=== PATIENT | female | born 1940 | race Caucasian/White ===

== ENCOUNTER 2017-02-09 10:21 | Emergency (ER) | payer OTHER ==
[~2017-02-09] VITALS: Ht 170.2 cm; Wt 81.0 kg
[~2017-02-09 10:21] MED LIST: 1-ME1LIQ PO; ATOR40TA49 PO; CARD4TAB2 PO; CORE25TA PO; GABA300 PO; LEVEMIR SQ; LEVO.025 PO; LISI-366 PO; MAGN400 PO; MAGN500T4 PO; METF-324 PO; METHO500 PO; PROT40TA PO; ST JTAB PO; SUCR1TAB PO; ULTR50TA PO
[2017-02-09 10:23] VITALS: BP 141/63; PULSE 60; RESP 20; TEMP 97.7; O2SAT 98
[2017-02-09] MEDS ORDERED: CARA1TAB6 PO (14:05)
[2017-02-09] MEDS ORDERED: CORE25TA PO (14:05)
[2017-02-09] MEDS ORDERED: PANT40TA3 PO (14:05)
[2017-02-09] MEDS ORDERED: CARD4TAB2 PO (14:05)
[2017-02-09] MEDS ORDERED: MAGN500T2 PO (14:05)
[2017-02-09] MEDS ORDERED: AMLO5TAB2 PO (14:05)
[2017-02-09] MEDS ORDERED: METF1000 PO (14:05)
[2017-02-09] MEDS ORDERED: ASPI1TAB91 PO (14:05)
[2017-02-09] MEDS ORDERED: LISI40TA PO (14:05)
[2017-02-09] MEDS ORDERED: ATOR40TA16 PO (14:05)
[2017-02-09] MEDS ORDERED: LEVO25TA4 PO (14:05)
--- NOTE | 2017-02-09 14:14 | PD ---
HPI Chief Complaint: ENT Complaint Time Seen by Provider: 13:40 Travel History International Travel<30 days: No Contact w/Intl Traveler<30days: No Traveled to known affect area: No History of Present Illness HPI 76yo F with PMH of mesothelioma s/p chemo and follows with Dr. Becker, CAD s/p cardiac stent, GERD, HTN presents to the ED with 2 complaints. Pt has been having cold like symptoms such as rhinorrhea and nasal congestion and said that after she sneezed today, she felt her hearing was decreased bilaterally. Denies any ear pain or trauma. Pt also with left sided flank pain since yesterday. Pain is throbbing, constant, and nonradiating. Said temperature of 100F at home. Denies any chest pain, sob, n/v, abdominal pain, urinary complaints, focal weakness or numbness. PFSH Past Medical History Arthritis: Yes Asthma: No Autoimmune Disease: No Blood Disorders: No Heart Rhythm Problems: Yes Cancer: Yes (LYMPHOMA, BOWEL) Cardiac Catheterization: Yes Cardiovascular Problems: Yes (3-4 STENTS) High Cholesterol: Yes Chemotherapy: Yes (2015) Chest Pain: No Congestive Heart Failure: Yes COPD: No Diabetes: Yes (METFORMIN 02/09/17 0800) Diminished Hearing: Yes Diverticulitis: Yes Endocrine: Yes Gastrointestinal Disorders: Yes GERD: Yes Glaucoma: No Genitourinary: No Hepatitis: No Hiatal Hernia: No Hypertension: Yes Immune Disorder: No Kidney Stones: No Musculoskeletal: Yes Neurologic: No Psychiatric: No Reproductive: No Respiratory: No Integumentary: Yes (HX MRSA) Myocardial Infarction: Yes Radiation Therapy: No Renal Failure: No Shingles: Yes Sickle Cell Disease: No Sleep Apnea: No Thyroid Disease: Yes (HYPO) Triglycerides - High: Yes Ulcer: No Menopausal: Yes Past Surgical History Abdominal Surgery: Yes (BOWEL RESECTION / KATIA / APPY) AICD: No Appendectomy: Yes Cardiac Surgery: Yes (STENTS) Cholecystectomy: Yes Coronary Stent: Yes Ear Surgery: No Endocrine Surgery: No Eye Surgery: No Genitourinary Surgery: No Gynecologic Surgery: Yes (HYSTERECTOMY) Hysterectomy: Yes Joint Replacement: Yes (R KNEE) Oral Surgery: No Thoracic Surgery: No Other Surgery: Yes (ABD ) Social History Alcohol Use: No Tobacco Use: No (QUIT 2002) Substance Use: No Allergies-Medications (Allergen,Severity, Reaction): Coded Allergies: Codeine (Verified Allergy, Severe, Hives, 05/08/16) Penicillin (Verified Allergy, Severe, Anaphylaxis, 05/08/16) REACTION NOT GIVEN Sulfa (Verified Allergy, Severe, Hives, 05/08/16) Reported Meds & Prescriptions Reported Meds & Active Scripts Active Nitrofurantoin Monohydrate Macrocrystals (Nitrofurantoin Monoh/Nitrofur Macro) 100 Mg Cap 100 Mg PO BID 7 Days Reported Amlodipine (Amlodipine Besylate) 5 Mg Tab 5 Mg PO DAILY Atorvastatin (Atorvastatin Calcium) 40 Mg Tab 40 Mg PO HS Cardura (Doxazosin Mesylate) 4 Mg Tab 4 Mg PO HS Coreg (Carvedilol) 25 Mg Tab 25 Mg PO BID Lisinopril 40 Mg Tab 40 Mg PO DAILY Metformin (Metformin HCl) 1,000 Mg Tab 1,000 Mg PO BID With meals Carafate (Sucralfate) 1 Gm Tab 1 Gm PO BID On empty stomach Levothyroxine (Levothyroxine Sodium) 25 Mcg Tab 25 Mcg PO DAILY Aspirin Adult Low Strength (Aspirin) 81 Mg Tabdr 81 Mg PO DAILY Pantoprazole (Pantoprazole Sodium) 40 Mg Tab 40 Mg PO DAILY Magnesium Oxide 500 Mg Tab 500 Mg PO DAILY Review of Systems Except as stated in HPI: all other systems reviewed are Neg Physical Exam Narrative GENERAL: 76yo F not in distress. SKIN: Focused skin assessment warm/dry. HEAD: Atraumatic. Normocephalic. EYES: Pupils equal and round at 3mm bilaterally. EOMI. No scleral icterus. No injection or drainage. ENT: Bilateral cerumen impaction. Throat: Clear. NECK: Trachea midline. No JVD. CARDIOVASCULAR: Regular rate and rhythm. No murmur appreciated. RESPIRATORY: No accessory muscle use. Clear to auscultation. Breath sounds equal bilaterally. GASTROINTESTINAL: Abdomen soft, non-tender, nondistended. No rebound tenderness or guarding. BACK: +TTP left flank. MUSCULOSKELETAL: No obvious deformities. No clubbing. No cyanosis. No edema. NEUROLOGICAL: Awake and alert. No obvious cranial nerve deficits. Motor grossly within normal limits. Normal speech. PSYCHIATRIC: Appropriate mood and affect; insight and judgment normal. Data Data Last Documented VS Vital Signs Date Time Temp Pulse Resp B/P Pulse Ox O2 Delivery O2 Flow Rate FiO2 02/09/17 17:41 95 Room Air 02/09/17 14:48 97.6 48 16 181/84 Orders Basic Metabolic Panel (Bmp) (02/09/17 13:55) Complete Blood Count With Diff (02/09/17 13:55) Urinalysis - C+S If Indicated (02/09/17 13:55) Iv Access Insert/Monitor (02/09/17 13:55) Ecg Monitoring (02/09/17 13:55) Oximetry (02/09/17 13:55) Sodium Chloride 0.9% Flush (Ns Flush) (02/09/17 14:00) Urine Culture (02/09/17 15:56) Nitrofurantoin Monohyd Macrocr (Macrobid (02/09/17 17:00) Heparin Central Flush (Heparin Central F (02/09/17 17:15) Labs Laboratory Tests Test 02/09/17 02/09/17 15:31 15:56 White Blood Count 5.4 TH/MM3 Red Blood Count 3.73 MIL/MM3 Hemoglobin 11.8 GM/DL Hematocrit 35.3 % Mean Corpuscular Volume 94.5 FL Mean Corpuscular Hemoglobin 31.6 PG Mean Corpuscular Hemoglobin 33.4 % Concent Red Cell Distribution Width 12.7 % Platelet Count 255 TH/MM3 Mean Platelet Volume 8.3 FL Neutrophils (%) (Auto) 59.2 % Lymphocytes (%) (Auto) 25.4 % Monocytes (%) (Auto) 10.3 % Eosinophils (%) (Auto) 4.5 % Basophils (%) (Auto) 0.6 % Neutrophils # (Auto) 3.2 TH/MM3 Lymphocytes # (Auto) 1.4 TH/MM3 Monocytes # (Auto) 0.5 TH/MM3 Eosinophils # (Auto) 0.2 TH/MM3 Basophils # (Auto) 0.0 TH/MM3 CBC Comment DIFF FINAL Differential Comment Sodium Level 141 MEQ/L Potassium Level 4.1 MEQ/L Chloride Level 106 MEQ/L Carbon Dioxide Level 25.3 MEQ/L Anion Gap 10 MEQ/L Blood Urea Nitrogen 27 MG/DL Creatinine 1.22 MG/DL Estimat Glomerular Filtration 43 ML/MIN Rate Random Glucose 140 MG/DL Calcium Level 9.2 MG/DL Urine Color YELLOW Urine Turbidity HAZY Urine pH 6.0 Urine Specific [place] 1.009 Urine Protein TRACE mg/dL Urine Glucose (UA) NEG mg/dL Urine Ketones NEG mg/dL Urine Occult Blood NEG Urine Nitrite NEG Urine Bilirubin NEG Urine Urobilinogen LESS THAN 2.0 MG/DL Urine Leukocyte Esterase LARGE Urine RBC 3 /hpf Urine WBC 105 /hpf Urine Transitional Epithelial 1 /hpf Cells Urine Amorphous Sediment RARE Urine Hyaline Casts 2 /lpf Urine Mucus FEW /lpf Microscopic Urinalysis Comment CULTURE INDICATED MDM Medical Decision Making Medical Screen Exam Complete: Yes Emergency Medical Condition: Yes Interpretation(s) Laboratory Tests Test 02/09/17 02/09/17 15:31 15:56 White Blood Count 5.4 TH/MM3 (4.0-11.0) Red Blood Count 3.73 MIL/MM3 (4.00-5.30) Hemoglobin 11.8 GM/DL (11.6-15.3) Hematocrit 35.3 % (35.0-46.0) Mean Corpuscular Volume 94.5 FL (80.0-100.0) Mean Corpuscular Hemoglobin 31.6 PG (27.0-34.0) Mean Corpuscular Hemoglobin 33.4 % Concent (32.0-36.0) Red Cell Distribution Width 12.7 % (11.6-17.2) Platelet Count 255 TH/MM3 (150-450) Mean Platelet Volume 8.3 FL (7.0-11.0) Neutrophils (%) (Auto) 59.2 % (16.0-70.0) Lymphocytes (%) (Auto) 25.4 % (9.0-44.0) Monocytes (%) (Auto) 10.3 % (0.0-8.0) Eosinophils (%) (Auto) 4.5 % (0.0-4.0) Basophils (%) (Auto) 0.6 % (0.0-2.0) Neutrophils # (Auto) 3.2 TH/MM3 (1.8-7.7) Lymphocytes # (Auto) 1.4 TH/MM3 (1.0-4.8) Monocytes # (Auto) 0.5 TH/MM3 (0-0.9) Eosinophils # (Auto) 0.2 TH/MM3 (0-0.4) Basophils # (Auto) 0.0 TH/MM3 (0-0.2) CBC Comment DIFF FINAL Differential Comment Sodium Level 141 MEQ/L (136-145) Potassium Level 4.1 MEQ/L (3.5-5.1) Chloride Level 106 MEQ/L (98-107) Carbon Dioxide Level 25.3 MEQ/L (21.0-32.0) Anion Gap 10 MEQ/L (5-15) Blood Urea Nitrogen 27 MG/DL (7-18) Creatinine 1.22 MG/DL (0.50-1.00) Estimat Glomerular Filtration 43 ML/MIN (>89) Rate Random Glucose 140 MG/DL (74-106) Calcium Level 9.2 MG/DL (8.5-10.1) Urine Color YELLOW (YELLW/STRAW) Urine Turbidity HAZY (CLEAR) Urine pH 6.0 (5.0-8.5) Urine Specific [place] 1.009 (1.002-1.035) Urine Protein TRACE mg/dL (NEG-TRACE) Urine Glucose (UA) NEG mg/dL (NEG) Urine Ketones NEG mg/dL (NEG) Urine Occult Blood NEG (NEG) Urine Nitrite NEG (NEG) Urine Bilirubin NEG (NEG) Urine Urobilinogen LESS THAN 2.0 MG/DL (LESS THAN 2.0) Urine Leukocyte Esterase LARGE (NEG) Urine RBC 3 /hpf (0-3) Urine WBC 105 /hpf (0-5) Urine Transitional Epithelial 1 /hpf (NONE) Cells Urine Amorphous Sediment RARE Urine Hyaline Casts 2 /lpf (RARE) Urine Mucus FEW /lpf (OCC) Microscopic Urinalysis Comment CULTURE INDICATED Differential Diagnosis Pyelonephritis vs. nephrolithiasis vs. UTI vs. cerumen impaction Narrative Course 76yo F with mesothelioma s/p chemo here with 2 complaints. Pt is complaining of left flank pain since yesterday. Labs reviewed, no leukocytosis. Creatinine 1.22, which is at baseline. UA showed large leukocyte. WBC 105. Pt reevaluated at bedside after flushing her ears with hydrogen peroxide and warm water. States now she can hear. TM wnl bilaterally. Pt also has no abdominal pain and left back pain has resolved. Pt is well appearing and wants to go home. Denies any nausea or vomiting. Pt has no abdominal pain and wants to go home, CT cancelled. She is allergic to penicillin and sulfa, will give PO antibiotics. First dose of nitrofurantoin given here. Diagnosis Primary Impression: UTI (urinary tract infection) Qualified Code: N39.0 - Urinary tract infection without hematuria, site unspecified Patient Instructions: General Instructions Departure Forms: Tests/Procedures Additional Instructions: Please follow up with your PMD in 1-2 days. Return to the ED if symptoms worsen. Med/Other Pt SpecificInfo: Prescription(s) given Scripts Nitrofurantoin Monohydrate Macrocrystals 100 Mg Qsp684 Mg PO BID 7 Days Ref 0 Prov:Parisa Davalos DO 02/09/17 Disposition: 01 DISCHARGE HOME Condition: Stable Parisa Davalos DO Feb 09, 2017 14:14
[2017-02-09 14:48] VITALS: BP 181/84; PULSE 48; RESP 16; TEMP 97.6; O2SAT 98
[2017-02-09] MEDS: SODIUM CHLORIDE 0.9% FLUSH 10 ML FLUSH IV FLUSH PRN ×2 (15:08→17:05)
[2017-02-09 16:07] LABS: AUTOMATED NEUTROPHIL # 3.2 TH/MM3 (1.8-7.7); BASOPHIL % 0.6 % (0.0-2.0); EOSINOPHIL # 0.2 TH/MM3 (0-0.4); EOSINOPHIL % 4.5 % (0.0-4.0); HEMATOCRIT 35.3 % (35.0-46.0); HEMO FLAGS DIFF FINAL; LYMPH % 25.4 % (9.0-44.0); LYMPHOCYTE # 1.4 TH/MM3 (1.0-4.8); MEAN CELL VOLUME 94.5 FL (80.0-100.0); MEAN CORPUSCULAR HEMOGLOBIN 31.6 PG (27.0-34.0); MEAN CORPUSCULAR HGB CONC 33.4 % (32.0-36.0); MONO % 10.3 % (0.0-8.0); NEUT % 59.2 % (16.0-70.0); PLATELET COUNT 255 TH/MM3 (150-450); RED BLOOD COUNT 3.73 MIL/MM3 (4.00-5.30); RED CELL DISTRIBUTION WIDTH 12.7 % (11.6-17.2); WHITE BLOOD COUNT 5.4 TH/MM3 (4.0-11.0)
[2017-02-09 16:23] LABS: BLOOD, URINE NEG (NEG); COMMENT (UR) CULTURE INDICATED; CULTURE IF INDICATED CULTURE INDICATED; GLUCOSE,URINE NEG (NEG); HYALINE CAST, URINE 2 /lpf (RARE); KETONE, URINE NEG (NEG); MUCUS URINE FEW /lpf (OCC); NITRITE,URINE NEG (NEG); TRANSITIONAL EPI CELLS, URINE 1 /hpf; URINE COLOR YELLOW (YELLW/STRAW)
[2017-02-09 16:30] LABS: BICARBONATE 25.3 MEQ/L (21.0-32.0); POTASSIUM 4.1 MEQ/L (3.5-5.1)
[2017-02-09] MEDS ORDERED: NITROFURANTOIN MONOHYD MACROCR 100 MG CAP PO ONE (17:00)
[2017-02-09] MEDS ORDERED: NITR100C4 PO (17:09)
[2017-02-09 17:41] VITALS: O2SAT 95
== END 2017-02-09 17:42 | disposition home or self-care (01) ==
LOC: NEPD 10:21
DX: N39.0 Urinary tract infection, site not specified (principal); A49.02 Methicillin resistant Staphylococcus aureus infection, unspecified site; J34.89 Other specified disorders of nose and nasal sinuses; R09.81 Nasal congestion; C45.9 Mesothelioma, unspecified; K21.9 Gastro-esophageal reflux disease without esophagitis; I10 Essential (primary) hypertension; E11.9 Type 2 diabetes mellitus without complications; I50.9 Heart failure, unspecified
CPT/HCPCS: 80048; 81001; 85025; 86403; 87086; 87186; 99283; J1642

== ENCOUNTER 2017-07-09 16:47 | Inpatient (IN) | payer OTHER, MEDICARE ==
[~2017-07-09] VITALS: Ht 172.7 cm; Wt 84.6 kg
[~2017-07-09 16:47] MED LIST changes: -1-ME1LIQ PO; +AMLO5TAB2 PO; +ASPI81TA16 PO; +ATOR40TA16 PO; -ATOR40TA49 PO; +CARA1TAB6 PO; -GABA300 PO; -LEVEMIR SQ; -LEVO.025 PO; +LEVO25TA4 PO; -LISI-366 PO; +LISI40TA PO; -MAGN400 PO; +MAGN500T2 PO; -MAGN500T4 PO; -METF-324 PO; +METF1000 PO; -METHO500 PO; +NITR100C4 PO; +PANT40TA3 PO; -PROT40TA PO; -ST JTAB PO; -SUCR1TAB PO; -ULTR50TA PO
[2017-07-09 16:49] VITALS: BP 102/54; PULSE 89; RESP 26; TEMP 101.1; O2SAT 91
[2017-07-09 17:06] VITALS: BP 140/103; PULSE 83; RESP 18; O2SAT 93
[2017-07-09 17:11] VITALS: PULSE 83; RESP 18; O2SAT 93
[2017-07-09] MEDS ORDERED: SODIUM CHLOR 0.9% 1000 ML INJ 1,000 ML IV SCH (17:30)
--- NOTE | 2017-07-09 17:53 | PD ---
HPI Chief Complaint: Fever Time Seen by Provider: 17:28 Travel History International Travel<30 days: No Contact w/Intl Traveler<30days: No Traveled to known affect area: No History of Present Illness HPI This is a 76-year-old female with a history of lymphoma, hypertension, hyperlipidemia, diabetes mellitus, who presents via private vehicle with complaints of fever and cough. The patient states that she's been coughing up phlegm. She does not know what color it is that she states she's three quarters blind. She does report fevers with mild chills. There is also nausea with no vomiting. She does report that she's had loose stools. She denies any dysuria urgency. She states she is always time because of her diabetes it does not report any change in the frequency. She does report generalized weakness. There are no other complaints time my examination. PFSH Past Medical History Arthritis: Yes Asthma: No Autoimmune Disease: No Blood Disorders: No Heart Rhythm Problems: Yes Cancer: Yes (LYMPHOMA, BOWEL) Cardiac Catheterization: Yes Cardiovascular Problems: Yes High Cholesterol: Yes Chemotherapy: Yes (2016) Chest Pain: No Congestive Heart Failure: Yes COPD: No Diabetes: Yes Patient Takes Glucophage: Yes Diminished Hearing: Yes Diverticulitis: Yes Endocrine: Yes Gastrointestinal Disorders: Yes GERD: Yes Glaucoma: No Genitourinary: No Hepatitis: No Hiatal Hernia: No Hypertension: Yes Immune Disorder: No Kidney Stones: No Musculoskeletal: Yes Neurologic: No Psychiatric: No Reproductive: No Respiratory: No Integumentary: Yes (HX MRSA) Myocardial Infarction: Yes Radiation Therapy: No Renal Failure: No Shingles: Yes Sickle Cell Disease: No Sleep Apnea: No Thyroid Disease: Yes (HYPO) Triglycerides - High: Yes Ulcer: No Menopausal: Yes Past Surgical History Abdominal Surgery: Yes (BOWEL RESECTION / KATIA / APPY) AICD: No Appendectomy: Yes Cardiac Surgery: Yes (STENTS) Cholecystectomy: Yes Coronary Stent: Yes Ear Surgery: No Endocrine Surgery: No Eye Surgery: No Genitourinary Surgery: No Gynecologic Surgery: Yes (HYSTERECTOMY) Hysterectomy: Yes Joint Replacement: Yes (R KNEE) Oral Surgery: No Thoracic Surgery: No Other Surgery: Yes (ABD ) Social History Alcohol Use: No Tobacco Use: No (QUIT 2002) Substance Use: No Allergies-Medications (Allergen,Severity, Reaction): Coded Allergies: Sulfa (Sulfonamide Antibiotics) (Unverified Allergy, Severe, Hives, ) codeine (Unverified Allergy, Severe, Hives, 03/01/17) penicillin G (Unverified Allergy, Severe, Anaphylaxis, 03/01/17) REACTION NOT GIVEN *MDRO Multi-Drug Resistant Organism (Verified Adverse Reaction, Unknown, ) MRSA (urine) 02/09/17 Reported Meds & Prescriptions Reported Meds & Active Scripts Active Reported Amlodipine (Amlodipine Besylate) 5 Mg Tab 5 Mg PO DAILY Atorvastatin (Atorvastatin Calcium) 40 Mg Tab 40 Mg PO HS Cardura (Doxazosin Mesylate) 4 Mg Tab 4 Mg PO HS Coreg (Carvedilol) 25 Mg Tab 25 Mg PO BID Lisinopril 40 Mg Tab 40 Mg PO DAILY Metformin (Metformin HCl) 1,000 Mg Tab 1,000 Mg PO BID With meals Carafate (Sucralfate) 1 Gm Tab 1 Gm PO BID On empty stomach Levothyroxine (Levothyroxine Sodium) 25 Mcg Tab 25 Mcg PO DAILY Aspirin Adult Low Strength (Aspirin) 81 Mg Tabdr 81 Mg PO DAILY Pantoprazole (Pantoprazole Sodium) 40 Mg Tab 40 Mg PO DAILY Magnesium Oxide 500 Mg Tab 500 Mg PO DAILY Review of Systems Except as stated in HPI: all other systems reviewed are Neg General / Constitutional: Positive: Fever, Chills HENT: No: Headaches, Neck Pain Cardiovascular: No: Chest Pain or Discomfort, Palpitations Respiratory: Positive: Cough (productive), No: Shortness of Breath Gastrointestinal: Positive: Nausea, Diarrhea, Abdominal Pain (generalized crampy), No: Vomiting, Hematochezia Genitourinary: Positive: Frequency, No: Dysuria, Incontinence Musculoskeletal: Positive: Weakness (generalized), No: Pain Neurologic: Positive: Weakness (generalized), No: Headache, Seizures Physical Exam Narrative GENERAL: Well-developed well-nourished female in no acute respiratory distress. The patient was actively coughing when I entered the room. SKIN: Focused skin assessment warm/dry. HEAD: Atraumatic. Normocephalic. EYES: No scleral icterus. No injection or drainage. ENT: No nasal bleeding or discharge. Mucous membranes pink and dry. NECK: Trachea midline. Supple. CARDIOVASCULAR: Regular rate and rhythm. No murmur appreciated. RESPIRATORY: Coarse rhonchi bilaterally. Decreased respiratory effort. GASTROINTESTINAL: Abdomen soft, non-tender, nondistended. Subjective cramping. No rebound or guarding noted. MUSCULOSKELETAL: No obvious deformities. No clubbing. No cyanosis. No edema. NEUROLOGICAL: Awake and alert. No obvious cranial nerve deficits. Motor grossly within normal limits. Normal speech. Data Data Last Documented VS Vital Signs Date Time Temp Pulse Resp B/P (MAP) Pulse Ox O2 Delivery O2 Flow Rate FiO2 07/09/17 17:11 83 18 93 Room Air 07/09/17 16:49 101.1 Orders Orders Sepsis Workup Initiated (07/09/17 ) Electrocardiogram (07/09/17 17:05) Complete Blood Count With Diff (07/09/17 17:05) Comprehensive Metabolic Panel (07/09/17 17:05) Prothrombin Time / Inr (Pt) (07/09/17 17:05) Act Partial Throm Time (Ptt) (07/09/17 17:05) Lactic Acid Sepsis Protocol (07/09/17 17:05) Magnesium (Mg) (07/09/17 17:05) Phosphorus (Po4) (07/09/17 17:05) Lipase (07/09/17 17:05) Ckmb (Isoenzyme) Profile (07/09/17 17:05) Troponin I (07/09/17 17:05) Urinalysis - C+S If Indicated (07/09/17 17:05) Influenzae A/B Antigen (07/09/17 17:05) Blood Culture (07/09/17 17:05) Chest, Single Ap (07/09/17 17:05) Blood Glucose (07/09/17 17:05) Ecg Monitoring (07/09/17 17:05) Iv Access Insert/Monitor (07/09/17 17:05) Oximetry (07/09/17 17:05) Oxygen Administration (07/09/17 17:05) Sodium Chlor 0.9% 1000 Ml Inj (Ns 1000 M (07/09/17 17:30) Sodium Chloride 0.9% Flush (Ns Flush) (07/09/17 19:00) Ceftriaxone Inj (Rocephin Inj) (07/09/17 19:00) Azithromycin Inj (Zithromax Inj) (07/09/17 19:00) Labs Laboratory Tests Test 07/09/17 18:01 07/09/17 18:02 Blood Urea Nitrogen 28 MG/DL Creatinine 1.37 MG/DL Random Glucose 203 MG/DL Total Protein 7.7 GM/DL Albumin 3.7 GM/DL Calcium Level 8.8 MG/DL Phosphorus Level 1.4 MG/DL Magnesium Level 1.8 MG/DL Alkaline Phosphatase 101 U/L Aspartate Amino Transf (AST/SGOT) 23 U/L Alanine Aminotransferase (ALT/SGPT) 18 U/L Total Bilirubin 0.7 MG/DL Sodium Level 136 MEQ/L Potassium Level 4.3 MEQ/L Chloride Level 105 MEQ/L Carbon Dioxide Level 22.6 MEQ/L Anion Gap 8 MEQ/L Estimat Glomerular Filtration Rate 38 ML/MIN Total Creatine Kinase 95 U/L Troponin I 0.13 NG/ML Lipase 68 U/L White Blood Count 15.6 TH/MM3 Red Blood Count 3.69 MIL/MM3 Hemoglobin 12.0 GM/DL Hematocrit 35.3 % Mean Corpuscular Volume 95.5 FL Mean Corpuscular Hemoglobin 32.4 PG Mean Corpuscular Hemoglobin Concent 33.9 % Red Cell Distribution Width 13.6 % Platelet Count 268 TH/MM3 Mean Platelet Volume 9.1 FL Neutrophils (%) (Auto) 80.0 % Lymphocytes (%) (Auto) 6.5 % Monocytes (%) (Auto) 13.1 % Eosinophils (%) (Auto) 0.2 % Basophils (%) (Auto) 0.2 % Neutrophils # (Auto) 12.4 TH/MM3 Lymphocytes # (Auto) 1.0 TH/MM3 Monocytes # (Auto) 2.0 TH/MM3 Eosinophils # (Auto) 0.0 TH/MM3 Basophils # (Auto) 0.0 TH/MM3 CBC Comment DIFF FINAL Differential Comment Lactic Acid Level 2.1 mmol/L [facility] Medical Decision Making Medical Screen Exam Complete: Yes Emergency Medical Condition: Yes Interpretation(s) Last 24 hours Impressions Chest X-Ray 07/09/17 1705 Signed Impressions: Service Date/Time: Sunday, July 09, 2017 17:30 - CONCLUSION: Mild patchy left lung base consolidation. Tacho Ramirez MD Differential Diagnosis Sepsis versus pneumonia versus UTI versus metabolic derangement Narrative Course 76-year-old female presents with fever and cough. The patient has an elevated white blood cell count with a left shift. Patient also noted to have a left lower lobe infiltrate noted on chest x-ray. Lactic acid is elevated at above 2. The patient will be admitted to the hospital for pneumonia. She's been given Rocephin and Zithromax. Cultures are pending at this time. Urinalysis is pending at this time. There is a call out to the [facility] for admission. Sepsis Criteria SIRS Criteria (2 or more): Temp > 100.9 or < 96.8, RR > 20 or PaCO2 < 32, WBC > 61323, < 4000 or > 10% bands Sepsis Criteria (SIRS+source): Infect source susp/known Severe Sepsis (+one): Lactate >2, Acute Oliguria/Renal Failure Diagnosis Primary Impression: Sepsis Additional Impressions: Pneumonia Leukocytosis Hypertension Renal insufficiency Elevated troponin Mickey Granados MD Jul 09, 2017 17:52
--- NOTE | 2017-07-09 18:17 | RADRPT ---
EXAM DATE/TIME: 07/09/2017 17:30 [facility] COMPARISON: CHEST SINGLE AP, November 07, 2014, 12:16. INDICATIONS : Fever. MEDICAL HISTORY : Diabetes mellitus type II. Hypertension Lymphoma. Abdominal cancer. SURGICAL HISTORY : Port. Stents. ENCOUNTER: Initial ACUITY: 3 days PAIN SCORE: 0/10 LOCATION: Bilateral chest FINDINGS: Single AP view of the chest. Patchy opacity at left lung base indicating mild consolidation. Right-si ded [id number] in place. No evidence of pleural effusion or pneumothorax. Moderate-sized hilar her jayson noted. Cardiac silhouette within normal limits. CONCLUSION: Mild patchy left lung base consolidation. Tacho Ramirez MD on July 09, 2017 at 18:15 Board Certified Radiologist. This report was verified electronically.
[2017-07-09 18:30] LABS: AUTOMATED NEUTROPHIL # 12.4 TH/MM3 (1.8-7.7); BASOPHIL % 0.2 % (0.0-2.0); EOSINOPHIL % 0.2 % (0.0-4.0); HEMATOCRIT 35.3 % (35.0-46.0); LYMPH % 6.5 % (9.0-44.0); MEAN CELL VOLUME 95.5 FL (80.0-100.0); MEAN CORPUSCULAR HEMOGLOBIN 32.4 PG (27.0-34.0); MEAN CORPUSCULAR HGB CONC 33.9 % (32.0-36.0); MEAN PLATELET VOLUME 9.1 FL (7.0-11.0); MONO % 13.1 % (0.0-8.0); PLATELET COUNT 268 TH/MM3 (150-450); RED BLOOD COUNT 3.69 MIL/MM3 (4.00-5.30); RED CELL DISTRIBUTION WIDTH 13.6 % (11.6-17.2); WHITE BLOOD COUNT 15.6 TH/MM3 (4.0-11.0)
[2017-07-09 18:42] LABS: LACTIC ACID SEPSIS PROTOCOL 2.1 mmol/L (0.4-2.0)
[2017-07-09 18:48] LABS: ALT (GPT) 18 U/L (10-53); PHOSPHORUS 1.4 MG/DL (2.5-4.9)
[2017-07-09 18:49] LABS: ALBUMIN 3.7 GM/DL (3.4-5.0); AST (GOT) 23 U/L (15-37); BICARBONATE 22.6 MEQ/L (21.0-32.0); BLOOD UREA NITROGEN 28 MG/DL (7-18); CALCIUM 8.8 MG/DL (8.5-10.1); CHLORIDE 105 MEQ/L (98-107); CREATININE 1.37 MG/DL (0.50-1.00); GLOMERULAR FILTRATION RATE 38 ML/MIN (>89); GLUCOSE,RANDOM 203 MG/DL (74-106); LIPASE 68 U/L (73-393); MAGNESIUM 1.8 MG/DL (1.5-2.5); SODIUM (NA) 136 MEQ/L (136-145)
[2017-07-09 18:54] LABS: ALKALINE PHOSPHATASE 101 U/L (45-117); TOTAL BILIRUBIN ADULT 0.7 MG/DL (0.2-1.0); TOTAL PROTEIN 7.7 GM/DL (6.4-8.2); TROPONIN I 0.13 NG/ML (0.02-0.05)
[2017-07-09] MEDS ORDERED: cefTRIAXone INJ 1,000 MG in SODIUM CHLORIDE 0.9% INJ 100 ML IV ONE (19:00)
[2017-07-09] MEDS ORDERED: SODIUM CHLORIDE 0.9% FLUSH 10 ML FLUSH IVF PRN (19:00)
[2017-07-09] MEDS ORDERED: AZITHROMYCIN INJ 500 MG in SODIUM CHLOR 0.9% 250 ML INJ 250 ML IV ONE (19:00)
[2017-07-09 19:14] VITALS: BP 148/68; PULSE 68; RESP 16; O2SAT 95
[2017-07-09] MEDS ORDERED: ACETAMINOPHEN 325 MG TAB PO ONE (19:15)
[2017-07-09 19:48] LABS: BILIRUBIN, URINE NEG (NEG); BLOOD, URINE SMALL (NEG); GLUCOSE,URINE TRACE mg/dL (NEG); KETONE, URINE TRACE mg/dL (NEG); NITRITE,URINE POS (NEG); URINE COLOR YELLOW (YELLW/STRAW); URINE LEUKOCYTE ESTERASE LARGE (NEG)
[2017-07-09 20:00] LABS: INTERNATIONAL NORMALIZED RATIO 1.1 RATIO; PROTHROMBIN TIME - PATIENT 10.7 SEC (9.8-11.6)
[2017-07-09] MEDS ORDERED: RESP: ALBUTEROL 2.5 MG/IPRATROPIUM 0.5 MG NEB (PRN) INH (20:45)
[2017-07-09] MEDS ORDERED: SODIUM CHLORIDE 0.9% FLUSH 10 ML FLUSH IV FLUSH PRN (20:45)
[2017-07-09] MEDS ORDERED: DEXTROSE 50% IN WATER 50 ML VIAL(D50) IV PUSH PRN (21:00)
[2017-07-09] MEDS ORDERED: GLUCAGON 1 MG/ML VIAL OTHER PRN (21:00)
[2017-07-09 21:29] VITALS: BP 138/61; PULSE 73; RESP 20; TEMP 99.4; O2SAT 93
[2017-07-09 21:39] VITALS: O2SAT 95
[2017-07-09] MEDS: SODIUM CHLORIDE 0.9% FLUSH 10 ML FLUSH IV FLUSH SCH (22:24)
[2017-07-09] MEDS: INSULIN ASPART SUPPLEMENTAL SCALE SQ SCH (22:25)
[2017-07-09] MEDS: CARVEDILOL 12.5 MG TAB PO SCH (22:26)
[2017-07-09] MEDS: ATORVASTATIN 40 MG TAB PO SCH (22:26)
[2017-07-09] MEDS: DOXAZOSIN MESYLATE 4 MG TAB PO SCH (22:26)
[2017-07-09] MEDS: HEPARIN SODIUM - SQ 10,000 UNITS/ML VIAL SQ SCH (22:27)
[2017-07-09] MEDS: SODIUM CHLOR 0.9% 1000 ML INJ 1,000 ML IV SCH (22:29)
[2017-07-09] MEDS: MORPHINE SULFATE 2 MG/ML INJ IV PUSH PRN (22:42)
--- NOTE | 2017-07-09 22:48 | HHI.HP ---
[facility] Primary Care Physician Mitul Ga MD Admission Diagnosis sepsis, pneumonia, renal insufficiency, elevated troponin Diagnoses: Travel History International Travel<30 Days: No Contact w/Intl Traveler <30 Da: No Traveled to Known Affected Are: No History of Present Illness 76-year-old female with a past medical history significant for insulin- dependent diabetes mellitus, hypertension, hyperlipidemia, CAD status post stent placement and peritoneal mesothelioma presents to the emergency department with a three-day history of fever, cough productive of sputum and abdominal pain. The patient's abdominal pain has been chronic and she is in the process of being referred to the record press tender for further workup. WBCs 15.6. Lactic acid 2.1. Chest x-ray showed mild patchy left lung base consolidation. Patient also noted to have an elevated troponin of 0.13, has history of troponin elevation. Denies chest pain. EKG without ST segment elevations or depressions. Review of Systems Positive fever/chills Denies blurry vision, otorrhea, rhinorrhea Denies sore throat and cough No chest pain, palpitations, positive shortness of breath Positive abdominal pain Denies constipation/diarrhea/nausea/vomiting Denies muscle pain/weakness No rashes Past Family Social History Past Medical History CAD status post stent placement 3 Insulin-dependent diabetes mellitus GERD Hypertension Hyperlipidemia Peritoneal mesothelioma, currently in remission, followed by Dr. Becker Past Surgical History Appendectomy Right knee replacement Cholecystectomy Hysterectomy MRSA infection of the back that required surgery Resection of peritoneal mesothelioma Reported Medications Reported Meds & Active Scripts Active Reported Amlodipine (Amlodipine Besylate) 5 Mg Tab 5 Mg PO DAILY Atorvastatin (Atorvastatin Calcium) 40 Mg Tab 40 Mg PO HS Cardura (Doxazosin Mesylate) 4 Mg Tab 4 Mg PO HS Coreg (Carvedilol) 25 Mg Tab 25 Mg PO BID Lisinopril 40 Mg Tab 40 Mg PO DAILY Metformin (Metformin HCl) 1,000 Mg Tab 1,000 Mg PO BID With meals Carafate (Sucralfate) 1 Gm Tab 1 Gm PO BID On empty stomach Levothyroxine (Levothyroxine Sodium) 25 Mcg Tab 25 Mcg PO DAILY Aspirin Adult Low Strength (Aspirin) 81 Mg Tabdr 81 Mg PO DAILY Pantoprazole (Pantoprazole Sodium) 40 Mg Tab 40 Mg PO DAILY Magnesium Oxide 500 Mg Tab 500 Mg PO DAILY Allergies: Coded Allergies: Sulfa (Sulfonamide Antibiotics) (Unverified Allergy, Severe, Hives, ) codeine (Unverified Allergy, Severe, Hives, 03/01/17) penicillin G (Unverified Allergy, Severe, Anaphylaxis, 03/01/17) REACTION NOT GIVEN *MDRO Multi-Drug Resistant Organism (Verified Adverse Reaction, Unknown, ) MRSA (urine) 02/09/17 Family History Both parents with coronary artery disease. Social History Denies alcohol, tobacco and illicit drugs. Physical Exam Vital Signs Vital Signs Date Time Temp Pulse Resp B/P (MAP) Pulse Ox O2 Delivery O2 Flow Rate FiO2 07/09/17 21:39 95 21 07/09/17 21:29 99.4 73 20 138/61 (86) 93 07/09/17 20:29 07/09/17 19:14 68 16 148/68 (94) 95 Room Air 07/09/17 17:11 83 18 93 Room Air 07/09/17 17:11 93 Room Air 07/09/17 17:06 83 18 140/103 (115) 93 Room Air 07/09/17 17:06 84 18 93 Room Air 07/09/17 16:49 101.1 89 26 102/54 (70) 91 Physical Exam GENERAL: Elderly, female lying in bed SKIN: No rashes, ecchymoses or lesions. Cool and dry. HEAD: Atraumatic. Normocephalic. No temporal or scalp tenderness. EYES: Pupils equal round and reactive. Extraocular motions intact. No scleral icterus. No injection or drainage. ENT: Nose without bleeding, purulent drainage or septal hematoma. Throat without erythema, tonsillar hypertrophy or exudate. Uvula midline. Airway patent. NECK: Trachea midline. No JVD or lymphadenopathy. Supple, nontender, no meningeal signs. CARDIOVASCULAR: Regular rate and rhythm without murmurs, gallops, or rubs. RESPIRATORY: Coarse rhonchi bilaterally. GASTROINTESTINAL: Abdomen soft, non-tender, nondistended. No hepato-splenomegaly , or palpable masses. No guarding. MUSCULOSKELETAL: Extremities without clubbing, cyanosis, or edema. No joint tenderness, effusion, or edema noted. No calf tenderness. NEUROLOGICAL: Awake and alert. Cranial nerves II through XII intact. Motor and sensory grossly within normal limits. Normal speech. Laboratory Laboratory Tests Test 07/09/17 18:01 07/09/17 18:02 07/09/17 19:30 07/09/17 21:31 Blood Urea Nitrogen 28 Creatinine 1.37 Random Glucose 203 Total Protein 7.7 Albumin 3.7 Calcium Level 8.8 Phosphorus Level 1.4 Magnesium Level 1.8 Alkaline Phosphatase 101 Aspartate Amino Transf (AST/SGOT) 23 Alanine Aminotransferase (ALT/SGPT) 18 Total Bilirubin 0.7 Sodium Level 136 Potassium Level 4.3 Chloride Level 105 Carbon Dioxide Level 22.6 Anion Gap 8 Estimat Glomerular Filtration Rate 38 Total Creatine Kinase 95 Troponin I 0.13 Lipase 68 White Blood Count 15.6 Red Blood Count 3.69 Hemoglobin 12.0 Hematocrit 35.3 Mean Corpuscular Volume 95.5 Mean Corpuscular Hemoglobin 32.4 Mean Corpuscular Hemoglobin Concent 33.9 Red Cell Distribution Width 13.6 Platelet Count 268 Mean Platelet Volume 9.1 Neutrophils (%) (Auto) 80.0 Lymphocytes (%) (Auto) 6.5 Monocytes (%) (Auto) 13.1 Eosinophils (%) (Auto) 0.2 Basophils (%) (Auto) 0.2 Neutrophils # (Auto) 12.4 Lymphocytes # (Auto) 1.0 Monocytes # (Auto) 2.0 Eosinophils # (Auto) 0.0 Basophils # (Auto) 0.0 CBC Comment DIFF FINAL Differential Comment Lactic Acid Level 2.1 Urine Color YELLOW Urine Turbidity HAZY Urine pH 7.0 Urine Specific [place] 1.018 Urine Protein 30 Urine Glucose (UA) TRACE Urine Ketones TRACE Urine Occult Blood SMALL Urine Nitrite POS Urine Bilirubin NEG Urine Urobilinogen LESS THAN 2.0 Urine Leukocyte Esterase LARGE Urine RBC 21 Urine WBC 106 Microscopic Urinalysis Comment CATH-CULTURE IND Prothrombin Time 10.7 Prothromb Time International Ratio 1.1 Activated Partial Thromboplast Time 21.2 Date/Time Source Procedure Growth Status 07/09/17 18:05 Blood Peripheral Aerobic Blood Culture Pending Received 07/09/17 18:05 Blood Peripheral Anaerobic Blood Culture Pending Received 07/09/17 18:01 Nasal Washing Influenza Types A,B Antigen (ALEXUS) - Final NEGATIVE FOR FLU A AND B ANTIGEN.... Complete 07/09/17 19:30 Urine Catheterized Urine Urine Culture Pending Received Result Diagram: 07/09/17 1802 07/09/17 1801 Caprini VTE Risk Assessment Caprini VTE Risk Assessment: Mod/High Risk (score >= 2) Caprini Risk Assessment Model Point Value = 1 Point Value = 2 Point Value = 3 Point Value = 5 Age 41-60 Minor surgery BMI > 25 kg/m2 Swollen legs Varicose veins or History of unexplained or recurrent spontaneous Oral contraceptives or hormone replacement Sepsis (< 1 month) Serious lung disease, including pneumonia (< 1 month) Abnormal pulmonary function Acute myocardial infarction Congestive heart failure (< 1 month) History of inflammatory bowel disease Medical patient at bed rest Age 61-74 Arthroscopic surgery Major open surgery (> 45 min) Laparoscopic surgery (> 45 min) Malignancy Confined to bed (> 72 hours) Immobilizing plaster cast Central venous access Age >= 75 History of VTE Family history of VTE Factor V Leiden Prothrombin [id number] Lupus anticoagulant Anticardiolipin antibodies Elevated serum homocysteine Heparin-induced thrombocytopenia Other congenital or acquired thrombophilia Stroke (< 1 month) Elective arthroplasty Hip, pelvis, or leg fracture Acute spinal cord injury (< 1 month) Prophylaxis Regimen Total Risk Factor Score Risk Level Prophylaxis Regimen 0-1 Low Early ambulation 2 Moderate Order ONE of the following: *Sequential Compression Device (SCD) *Heparin 5000 units SQ BID 3-4 Higher Order ONE of the following medications: *Heparin 5000 units SQ TID *Enoxaparin/Lovenox 40 mg SQ daily (WT < 150 kg, CrCl > 30 mL/min) *Enoxaparin/Lovenox 30 mg SQ daily (WT < 150 kg, CrCl > 10-29 mL/min) *Enoxaparin/Lovenox 30 mg SQ BID (WT < 150 kg, CrCl > 30 mL/min) AND/OR *Sequential Compression Device (SCD) 5 or more Highest Order ONE of the following medications: *Heparin 5000 units SQ TID (Preferred with Epidurals) *Enoxaparin/Lovenox 40 mg SQ daily (WT < 150 kg, CrCl > 30 mL/min) *Enoxaparin/Lovenox 30 mg SQ daily (WT < 150 kg, CrCl > 10-29 mL/min) *Enoxaparin/Lovenox 30 mg SQ BID (WT < 150 kg, CrCl > 30 mL/min) AND *Sequential Compression Device (SCD) Assessment and Plan Assessment and Plan Assessment/plan: 1. Community-acquired pneumonia/Sepsis Leukocytosis, elevated lactic acid, and chest x-ray with left lung base consolidation Rocephin/azithromycin Repeat lactic acid pending IV fluids Blood, sputum cultures pending 2. UTI Urine culture pending Antibiotics as above 3. Elevated troponin Patient denies chest pain, EKG without ST segment elevations or depressions, reviewed by me Patient's troponin 0.13, most recent troponin 0.09 on 05/2014 ACS rule out pending; serial troponins/EKGs 4. Abdominal pain CT of the abdomen/pelvis pending Morphine for pain 5. Peritoneal mesothelioma Currently in remission Seen by Dr. Becker on 07/08/17 6. Diabetes mellitus Once medications reconciled, will start patient's home dose Levemir SSI Monitor blood glucose 7. CKD Creatinine 1.37, baseline Monitor renal function Avoid nephrotoxic agents 8. Hypertension/hyperlipidemia/CAD/hypothyroidism/GERD Continue home medications FEN Heart healthy diet Electrolyte: Monitor and replete when necessary NS at 100 cc/hr Heparin Case discussed with ER physician at length Physician Certification 2 Midnight Certification Type: Admission for Inpatient Services Order for Inpatient Services The services are ordered in accordance with Medicare regulations or non- Medicare payer requirements, as applicable. In the case of services not specified as inpatient-only, they are appropriately provided as inpatient services in accordance with the 2-midnight benchmark. Estimated LOS (days): 2 2 days is the estimated time the patient will need to remain in the hospital, assuming treatment plan goals are met and no additional complications. Post-Hospital Plan: Not yet determined Sarai Izaguirre MD Jul 09, 2017 22:48
[2017-07-10] VITALS: BP 109/54; PULSE 58; RESP 19; TEMP 98.4; O2SAT 94
[2017-07-10 01:51] LABS: TROPONIN I 0.12 NG/ML (0.02-0.05)
[2017-07-10] MEDS: MORPHINE SULFATE 2 MG/ML INJ IV PUSH PRN ×4 (02:41→21:11)
[2017-07-10 04:00] VITALS: BP 128/58; PULSE 55; RESP 20; TEMP 98.7; O2SAT 93
[2017-07-10] MEDS: HEPARIN SODIUM - SQ 10,000 UNITS/ML VIAL SQ SCH ×3 (06:30→21:12)
[2017-07-10] MEDS: LEVOTHYROXINE SODIUM 25 MCG TAB PO SCH (06:31)
[2017-07-10] MEDS: SODIUM CHLOR 0.9% 1000 ML INJ 1,000 ML IV SCH ×2 (06:34→16:57)
[2017-07-10] MEDS ORDERED: DIATRIZOATE MEGLUM/DIATRIZOATE SOD 9 ML CUP PO ONE (07:02)
[2017-07-10 07:24] LABS: BICARBONATE 25.2 MEQ/L (21.0-32.0); CALCIUM 8.5 MG/DL (8.5-10.1); CREATININE 1.19 MG/DL (0.50-1.00); TROPONIN I 0.12 NG/ML (0.02-0.05)
[2017-07-10 07:46] LABS: AUTOMATED NEUTROPHIL # 8.2 TH/MM3 (1.8-7.7); BASOPHIL # 0.1 TH/MM3 (0-0.2); BASOPHIL % 0.7 % (0.0-2.0); EOSINOPHIL # 0.2 TH/MM3 (0-0.4); EOSINOPHIL % 1.6 % (0.0-4.0); HEMATOCRIT 35.4 % (35.0-46.0); HEMOGLOBIN 11.8 GM/DL (11.6-15.3); LYMPH % 14.2 % (9.0-44.0); LYMPHOCYTE # 1.7 TH/MM3 (1.0-4.8); MEAN CELL VOLUME 94.8 FL (80.0-100.0); MEAN CORPUSCULAR HEMOGLOBIN 31.6 PG (27.0-34.0); MEAN CORPUSCULAR HGB CONC 33.4 % (32.0-36.0); MEAN PLATELET VOLUME 9.4 FL (7.0-11.0); MONO % 13.6 % (0.0-8.0); MONOCYTE # 1.6 TH/MM3 (0-0.9); NEUT % 69.9 % (16.0-70.0); PLATELET COUNT 196 TH/MM3 (150-450); RED BLOOD COUNT 3.73 MIL/MM3 (4.00-5.30); RED CELL DISTRIBUTION WIDTH 13.8 % (11.6-17.2); WHITE BLOOD COUNT 11.7 TH/MM3 (4.0-11.0)
[2017-07-10] MEDS: INSULIN ASPART SUPPLEMENTAL SCALE SQ SCH ×4 (07:56→21:00)
[2017-07-10 08:00] VITALS: BP 121/58; PULSE 70; RESP 18; TEMP 98.4; O2SAT 93
--- NOTE | 2017-07-10 08:10 | HHI.PR ---
Subjective Remarks somewhat ill looking but in no acute distress. Tmax 101.1. has occasional cough. feels weak. Objective Vitals Vital Signs Date Time Temp Pulse Resp B/P (MAP) Pulse Ox O2 Delivery O2 Flow Rate FiO2 07/10/17 04:00 98.7 55 20 128/58 (81) 93 07/10/17 00:00 98.4 58 19 109/54 (72) 94 07/09/17 22:46 Room Air 07/09/17 21:39 95 21 07/09/17 21:29 99.4 73 20 138/61 (86) 93 07/09/17 20:29 07/09/17 19:14 68 16 148/68 (94) 95 Room Air 07/09/17 17:11 83 18 93 Room Air 07/09/17 17:11 93 Room Air 07/09/17 17:06 83 18 140/103 (115) 93 Room Air 07/09/17 17:06 84 18 93 Room Air 07/09/17 16:49 101.1 89 26 102/54 (70) 91 I/O 07/09/17 07/09/17 07/09/17 07/10/17 07/10/17 07/10/17 07:00 15:00 23:00 07:00 15:00 23:00 Intake Total 850 ml 280 ml Balance 850 ml 280 ml Intake Oral 280 ml IV Total 850 ml # Voids 3 # Bowel Movements 0 Result Diagram: 07/10/17 0615 07/10/17 0615 Imaging Last Impressions Chest X-Ray 07/09/17 1705 Signed Impressions: Service Date/Time: Sunday, July 09, 2017 17:30 - CONCLUSION: Mild patchy left lung base consolidation. Tacho Ramirez MD Objective Remarks GENERAL: somewhat ill looking but in no apparent distress. CARDIOVASCULAR: Regular rate and regular rhythm without murmurs, gallops, or rubs. RESPIRATORY: diminished air entry in bases. GASTROINTESTINAL: Abdomen soft, non-tender, nondistended. Normal, active bowel sounds MUSCULOSKELETAL: Extremities without clubbing, cyanosis, or edema. NEURO: Alert & Oriented x4 to person, place, time, situation. Moves all ext x4 Medications and IVs Inpatient Medications Acetaminophen (Tylenol) 650 mg ONCE ONCE PO Last administered on 07/09/17t 19 :59; Start 07/09/17 at 19:15; Stop 07/09/17 at 19:17; Status DC Albuterol/ Ipratropium (Duoneb Neb) 1 ampule Q4HR NEB PRN INH SHORTNESS OF BREATH; Start 07/09/17 at 20:45 Amlodipine Besylate (Norvasc) 5 mg DAILY PO ; Start 07/10/17 at 09:00 Aspirin (Ecotrin Ec) 81 mg DAILY PO ; Start 07/10/17 at 09:00 Atorvastatin Calcium (Lipitor) 40 mg HS PO Last administered on 07/09/17 22: 26; Start 07/09/17 at 21:00 Azithromycin (Zithromax) 500 mg DAILY PO ; Start 07/10/17 at 17:00 Azithromycin 500 mg/Sodium Chloride 250 ml @ 250 mls/hr ONCE ONCE IV Last administered on 07/09/17 19:57; Start 07/09/17 at 19:00; Stop 07/09/17 at 19 :59; Status DC Carvedilol (Coreg) 25 mg BID PO Last administered on 07/09/17 22:26; Start 07/09/17 at 21:00 Ceftriaxone Sodium 1000 mg/ Sodium Chloride 100 ml @ 200 mls/hr Q24H IV ; Start 07/10/17 at 17:00 Dextrose (D50w (Vial) Inj) 50 ml UNSCH PRN IV PUSH HYPOGLYCEMIA-SEE COMMENTS; Start 07/09/17 at 21:00 Diatrizoate Meglum/ Diatrizoate Sod ( Gastroview Liq) 18 ml ONCE ONCE PO ; Start 07/10/17 at 07:02; Stop 07/10/17 at 07:52; Status DC Doxazosin Mesylate (Cardura) 4 mg HS PO Last administered on 07/09/17 22:26; Start 07/09/17 at 21:00 Glucagon (Glucagon Inj) 1 mg UNSCH PRN OTHER HYPOGLYCEMIA-SEE COMMENTS; Start 07/09/17 at 21:00 Heparin Sodium (Porcine) (Heparin Inj) 5,000 units Q8HR SQ Last administered on 07/10/17 06:30; Start 07/09/17 at 22:00 Influenza Virus Vaccine (Flu (Quadrivalent) Vaccine Inj) 0.5 ml ONCE ONCE IM ; Start 07/10/17 at 09:00; Stop 07/10/17 at 09:01 Insulin Aspart (NovoLOG SUPPLEMENTAL SCALE) 1 ACHS SLIDING SCALE SQ Last administered on 07/09/17 22:25; Start 07/09/17 at 21:00 Levothyroxine Sodium (Synthroid) 25 mcg DAILY@0600 PO Last administered on 06:31; Start 07/10/17 at 06:00 Lisinopril (Prinivil) 40 mg DAILY PO ; Start 07/10/17 at 09:00 Magnesium Oxide (Mag-Ox) 400 mg DAILY PO ; Start 07/10/17 at 09:00 Morphine Sulfate (Morphine Inj) 2 mg Q4H PRN IV PUSH pain 6-10 Last administered on 07/10/17 06:32; Start 07/09/17 at 21:00 Pantoprazole Sodium (Protonix) 40 mg DAILY PO ; Start 07/10/17 at 09:00 Sodium Chloride (NS Flush) 2 ml BID IV FLUSH Last administered on 07/09/17 22 :24; Start 07/09/17 at 21:00 A/P Assessment and Plan A/P 1. Community-acquired pneumonia/Sepsis Leukocytosis, elevated lactic acid, and chest x-ray with left lung base consolidation continue Rocephin/azithromycin follow the Blood, sputum cultures 2. UTI follow Urine culture Antibiotics as above 3. Elevated troponin- likely due to sepsis Patient denies chest pain, EKG without ST segment elevations or depressions. Patient's troponin 0.13- trend stable. of note, this was d/w the patient and she declined any further cardiac work-up. 4. Abdominal pain CT of the abdomen/pelvis pending continue pain control. 5. Peritoneal mesothelioma Currently in remission Seen by Dr. Becker on 07/08/17 6. Diabetes mellitus Once medications reconciled, will start patient's home dose Levemir SSI Monitor blood glucose 7. CKD Creatinine 1.37, baseline Monitor renal function Avoid nephrotoxic agents 8. Hypertension/hyperlipidemia/CAD/hypothyroidism/GERD Continue home medications FEN Heart healthy diet Electrolyte: Monitor and replete when necessary DVT prophylaxis with subq Heparin consult PTPadmini Fraser MD Jul 10, 2017 08:10
[2017-07-10] MEDS ORDERED: INFLUENZA VIRUS VACCINE (QUADRIVALENT) 0.5 ML SYR IM ONE (09:00)
[2017-07-10] MEDS: LISINOPRIL 20 MG TAB PO SCH (09:25)
[2017-07-10] MEDS: CARVEDILOL 12.5 MG TAB PO SCH ×2 (09:25→21:11)
[2017-07-10] MEDS: SODIUM CHLORIDE 0.9% FLUSH 10 ML FLUSH IV FLUSH SCH ×2 (09:25→21:11)
[2017-07-10] MEDS: PANTOPRAZOLE SOD 40 MG DELAYED RELEASE TAB PO SCH (09:25)
[2017-07-10] MEDS: amLODIPine BESYLATE 5 MG TAB PO SCH (09:26)
[2017-07-10] MEDS: ASPIRIN EC 81 MG TABEC PO SCH (09:26)
[2017-07-10] MEDS: MAGNESIUM OXIDE 400 MG TAB PO SCH (09:26)
[2017-07-10 11:46] VITALS: BP 133/59; PULSE 59; RESP 18; TEMP 98.9; O2SAT 93
--- NOTE | 2017-07-10 11:46 | RADRPT ---
EXAM DATE/TIME: 07/10/2017 11:25 [place] COMPARISON: No previous studies available for comparison. INDICATIONS : Abdominal pain. ORAL CONTRAST: Prescribed oral contrast ingested. RADIATION DOSE: 15.24 CTDIvol (mGy) MEDICAL HISTORY : Cardiovascular disease. Diabetes mellitus type 2. Lymphoma. SURGICAL HISTORY : Appendectomy. Cholecystectomy.Hysterectomy. ENCOUNTER: Initial ACUITY: 1 day PAIN SCALE: 5/10 LOCATION: abdomen TECHNIQUE: Volumetric scanning of the abdomen and pelvis was performed. Using automated exposure control and ad justment of the mA and/or kV according to patient size, radiation dose was kept as low as reasonably achievable to obtain optimal diagnostic quality images. DICOM format image data is available electro nically for review and comparison. FINDINGS: LOWER LUNGS: The visualized lower lungs are clear. Extensive coronary calcifications are evident. Large pattern is noted. LIVER: Homogeneous density without lesion. There is no dilation of the biliary tree. No calcified gallston es. SPLEEN: Normal size without lesion. PANCREAS: Extensive vascular cavitations are noted. There is no pancreatitis KIDNEYS: Bilateral small nonspecific renal cysts. Multiple bilateral small nonobstructing renal stones. ADRENAL GLANDS: Within normal limits. VASCULAR: There is no aortic aneurysm. Extensive atherosclerotic calcifications are evident. BOWEL/MESENTERY: The stomach, small bowel, and colon demonstrate no acute abnormality. There is no free intraperitone al air or fluid. ABDOMINAL WALL: Within normal limits. RETROPERITONEUM: There is no lymphadenopathy. BLADDER: No wall thickening or mass. REPRODUCTIVE: Within normal limits. INGUINAL: There is no lymphadenopathy or hernia. MUSCULOSKELETAL: Moderate degenerative changes lower lumbar spine and CONCLUSION: Extensive atherosclerotic vascular calcifications. I do not see an etiology of patient's abdominal pain. Bilateral nonobstructing renal stones Luis A Killian MD FACR on July 10, 2017 at 11:42 Board Certified Radiologist. This report was verified electronically.
[2017-07-10] MEDS ORDERED: ONDANSETRON HCL 4 MG/2 ML VIAL ONE (15:16)
[2017-07-10 16:00] VITALS: BP 125/58; PULSE 56; RESP 18; TEMP 97.9; O2SAT 93
[2017-07-10] MEDS: cefTRIAXone INJ 1,000 MG in SODIUM CHLORIDE 0.9% INJ 100 ML IV SCH (16:58)
[2017-07-10] MEDS: AZITHROMYCIN 250 MG TAB PO SCH (16:58)
[2017-07-10 20:00] VITALS: BP 157/69; PULSE 55; RESP 18; TEMP 98.1; O2SAT 94
[2017-07-10] MEDS: ATORVASTATIN 40 MG TAB PO SCH (21:11)
[2017-07-10] MEDS: DOXAZOSIN MESYLATE 4 MG TAB PO SCH (21:11)
[2017-07-11] VITALS: BP 139/60; PULSE 58; RESP 16; TEMP 98.9; O2SAT 94
[2017-07-11] MEDS: SODIUM CHLOR 0.9% 1000 ML INJ 1,000 ML IV SCH ×4 (02:42→22:42)
[2017-07-11] MEDS: MORPHINE SULFATE 2 MG/ML INJ IV PUSH PRN ×4 (03:13→19:52)
[2017-07-11 04:00] VITALS: BP 145/63; PULSE 60; RESP 18; TEMP 98.7; O2SAT 93
[2017-07-11] MEDS: LEVOTHYROXINE SODIUM 25 MCG TAB PO SCH (06:36)
[2017-07-11] MEDS: HEPARIN SODIUM - SQ 10,000 UNITS/ML VIAL SQ SCH ×3 (06:36→20:41)
[2017-07-11] MEDS: INSULIN ASPART SUPPLEMENTAL SCALE SQ SCH ×4 (07:45→20:41)
[2017-07-11 08:01] VITALS: BP 128/62; PULSE 62; RESP 21; TEMP 98.5; O2SAT 95
[2017-07-11] MEDS: MAGNESIUM OXIDE 400 MG TAB PO SCH (08:05)
[2017-07-11] MEDS: CARVEDILOL 12.5 MG TAB PO SCH ×2 (08:05→19:52)
[2017-07-11] MEDS: PANTOPRAZOLE SOD 40 MG DELAYED RELEASE TAB PO SCH (08:06)
[2017-07-11] MEDS: LISINOPRIL 20 MG TAB PO SCH (08:06)
[2017-07-11] MEDS: ASPIRIN EC 81 MG TABEC PO SCH (08:06)
[2017-07-11] MEDS: SODIUM CHLORIDE 0.9% FLUSH 10 ML FLUSH IV FLUSH SCH ×2 (08:06→19:53)
[2017-07-11] MEDS: AZITHROMYCIN 250 MG TAB PO SCH (08:06)
[2017-07-11] MEDS: amLODIPine BESYLATE 5 MG TAB PO SCH (08:06)
--- NOTE | 2017-07-11 09:18 | HHI.FF ---
Face to Face Verification Diagnosis: (1) Pneumonia Physical Therapy Order: Evaluate and Treat Home Health Nursing Order: Medical education Signs/symptoms of disease process Medication education-adverse effect Nursing assessment with vital signs I have seen patient Kristy Matthews on 07/11/17. My clinical findings support the need for the requested home health care services because: Ltd mobility - disease progression I certify that my clinical findings support that this patient is homebound because: Unsteady gait/balance Padmini Montejo MD Jul 11, 2017 09:18
--- NOTE | 2017-07-11 09:18 | HHI.PR ---
Subjective Remarks in no acute distress. sob is better. had mild nausea after the breakfast. remains afebrile. Objective Vitals Vital Signs Date Time Temp Pulse Resp B/P (MAP) Pulse Ox O2 Delivery O2 Flow Rate FiO2 07/11/17 08:07 Room Air 07/11/17 08:01 98.5 62 21 128/62 (84) 95 07/11/17 04:00 98.7 60 18 145/63 (90) 93 07/11/17 00:00 98.9 58 16 139/60 (86) 94 07/10/17 20:00 98.1 55 18 157/69 (98) 94 07/10/17 19:45 Room Air 07/10/17 16:00 97.9 56 18 125/58 (80) 93 07/10/17 13:42 21 07/10/17 13:22 18 07/10/17 11:46 98.9 59 18 133/59 (83) 93 I/O 07/10/17 07/10/17 07/10/17 07/11/17 07/11/17 07/11/17 07:00 15:00 23:00 07:00 15:00 23:00 Intake Total 280 ml 1600 ml Balance 280 ml 1600 ml Intake Oral 280 ml 600 ml IV Total 1000 ml # Voids 3 3 # Bowel Movements 0 0 Result Diagram: 07/10/17 0615 07/10/17 0615 Imaging Last Impressions Chest X-Ray 07/09/17 1705 Signed Impressions: Service Date/Time: Sunday, July 09, 2017 17:30 - CONCLUSION: Mild patchy left lung base consolidation. Tacho Ramirez MD Abdomen/Pelvis CT 07/09/17 0000 Signed Impressions: Service Date/Time: Monday, July 10, 2017 11:25 - CONCLUSION: Extensive atherosclerotic vascular calcifications. I do not see an etiology of patient's abdominal pain. Bilateral nonobstructing renal stones Luis A Killian MD FACR Objective Remarks GENERAL: somewhat ill looking but in no apparent distress. CARDIOVASCULAR: Regular rate and regular rhythm without murmurs, gallops, or rubs. RESPIRATORY: diminished air entry in bases. GASTROINTESTINAL: Abdomen soft, non-tender, nondistended. Normal, active bowel sounds MUSCULOSKELETAL: Extremities without clubbing, cyanosis, or edema. NEURO: Alert & Oriented x4 to person, place, time, situation. Moves all ext x4 Procedures none Medications and IVs Inpatient Medications Acetaminophen (Tylenol) 650 mg ONCE ONCE PO Last administered on 07/09/17 19 :59; Start 07/09/17 at 19:15; Stop 07/09/17 at 19:17; Status DC Albuterol/ Ipratropium (Duoneb Neb) 1 ampule Q4HR NEB PRN INH SHORTNESS OF BREATH; Start 07/09/17 at 20:45 Amlodipine Besylate (Norvasc) 5 mg DAILY PO Last administered on 07/11/17 08: 06; Start 07/10/17 at 09:00 Aspirin (Ecotrin Ec) 81 mg DAILY PO Last administered on 07/11/17 08:06; Start 07/10/17 at 09:00 Atorvastatin Calcium (Lipitor) 40 mg HS PO Last administered on 07/10/17 21: 11; Start 07/09/17 at 21:00 Azithromycin (Zithromax) 500 mg DAILY PO Last administered on 07/11/17 08:06 ; Start 07/10/17 at 17:00 Azithromycin 500 mg/Sodium Chloride 250 ml @ 250 mls/hr ONCE ONCE IV Last administered on 07/09/17 19:57; Start 07/09/17 at 19:00; Stop 07/09/17 at 19 :59; Status DC Carvedilol (Coreg) 25 mg BID PO Last administered on 07/11/17 08:05; Start 07/09/17 at 21:00 Ceftriaxone Sodium 1000 mg/ Sodium Chloride 100 ml @ 200 mls/hr Q24H IV Last administered on 07/10/17 16:58; Start 07/10/17 at 17:00 Dextrose (D50w (Vial) Inj) 50 ml UNSCH PRN IV PUSH HYPOGLYCEMIA-SEE COMMENTS; Start 07/09/17 at 21:00 Diatrizoate Meglum/ Diatrizoate Sod ( Gastroview Liq) 18 ml ONCE ONCE PO Last administered on 07/10/17 08:25; Start 07/10/17 at 07:02; Stop 07/10/17 at 07:52; Status DC Doxazosin Mesylate (Cardura) 4 mg HS PO Last administered on 07/10/17 21:11; Start 07/09/17 at 21:00 Glucagon (Glucagon Inj) 1 mg UNSCH PRN OTHER HYPOGLYCEMIA-SEE COMMENTS; Start 07/09/17 at 21:00 Heparin Sodium (Porcine) (Heparin Inj) 5,000 units Q8HR SQ Last administered on 07/11/17 06:36; Start 07/09/17 at 22:00 Influenza Virus Vaccine (Flu (Quadrivalent) Vaccine Inj) 0.5 ml ONCE ONCE IM Last administered on 07/10/17 09:24; Start 07/10/17 at 09:00; Stop 07/10/17 at 09:01; Status DC Insulin Aspart (NovoLOG SUPPLEMENTAL SCALE) 1 ACHS SLIDING SCALE SQ Last administered on 07/10/17 21:00; Start 07/09/17 at 21:00 Levothyroxine Sodium (Synthroid) 25 mcg DAILY@0600 PO Last administered on 06:36; Start 07/10/17 at 06:00 Lisinopril (Prinivil) 40 mg DAILY PO Last administered on 07/11/17 08:06; Start 07/10/17 at 09:00 Magnesium Oxide (Mag-Ox) 400 mg DAILY PO Last administered on 07/11/17 08:05 ; Start 07/10/17 at 09:00 Morphine Sulfate (Morphine Inj) 2 mg Q4H PRN IV PUSH pain 6-10 Last administered on 07/11/17 08:19; Start 07/09/17 at 21:00 Pantoprazole Sodium (Protonix) 40 mg DAILY PO Last administered on 07/11/17 08:06; Start 07/10/17 at 09:00 Sodium Chloride (NS Flush) 2 ml BID IV FLUSH Last administered on 07/10/17 21 :11; Start 07/09/17 at 21:00 A/P Assessment and Plan A/P 1. Community-acquired pneumonia/Sepsis Leukocytosis, elevated lactic acid, and chest x-ray with left lung base consolidation continue Rocephin/azithromycin blood cultures negative so far. 2. UTI UC with MRSA add Vancomycin 3. Elevated troponin- likely due to sepsis Patient denies chest pain, EKG without ST segment elevations or depressions. Patient's troponin 0.13- trend stable. of note, this was d/w the patient and she declined any further cardiac work-up. 4. Abdominal pain better. continue pain control. 5. Peritoneal mesothelioma Currently in remission Seen by Dr. Becker on 07/08/17 6. Diabetes mellitus Once medications reconciled, will start patient's home dose Levemir SSI Monitor blood glucose 7. CKD Creatinine 1.37, baseline Monitor renal function Avoid nephrotoxic agents 8. Hypertension/hyperlipidemia/CAD/hypothyroidism/GERD Continue home medications FEN Heart healthy diet Electrolyte: Monitor and replete when necessary DVT prophylaxis with subq Heparin consulted PT. Discharge Planning dc home -likely tomorrow- if stable. case management for HHC. Padmini Montejo MD Jul 11, 2017 09:18
[2017-07-11] MEDS ORDERED: DOXY100C PO (09:19)
[2017-07-11] MEDS ORDERED: Vancomycin Consult Pharmacy 1 EA OTHER SCH (09:30)
[2017-07-11] MEDS ORDERED: VANCOMYCIN INJ 1,000 MG in SODIUM CHLOR 0.9% 250 ML INJ 250 ML IV ONE (10:00)
[2017-07-11] MEDS ORDERED: VANCOMYCIN INJ 1,250 MG in SODIUM CHLOR 0.9% 250 ML INJ 250 ML IV SCH (10:00)
--- NOTE | 2017-07-11 10:38 | EKG ---
Date Performed: 07/09/2017 Time Performed: 17:12:38 PTAGE: 76 years EKG: Sinus rhythm LOW QRS VOLTAGE IN PRECORDIAL LEADS LEFT ANTERIOR FASCICULAR BLOCK SEPTAL MYOCARDIAL INFARCTION MODE RATE T-WAVE ABNORMALITY ABNORMAL ECG PREVIOUS TRACING : 05/08/2016 05.32 Compared to prior tracing no significant change DOCTOR: Wojciech Bell Interpretating Date/Time 07/11/2017 10:37:11
[2017-07-11] MEDS: VANCOMYCIN INJ 1,250 MG in SODIUM CHLOR 0.9% 250 ML INJ 250 ML IV SCH (10:59)
[2017-07-11 13:02] VITALS: BP 131/61; PULSE 56; RESP 21; TEMP 99.2; O2SAT 94
--- NOTE | 2017-07-11 13:24 | HHI.DS ---
Discharge Summary Admission Date Jul 09, 2017 at 19:17 Discharge Date: Jul 11, 2017 Admitting Diagnosis sepsis, pneumonia, renal insufficiency, elevated troponin (1) Pneumonia ICD Code: J18.9 - Pneumonia, unspecified organism Diagnosis: Principal Status: Acute Procedures none Brief History - From Admission 76-year-old female with a past medical history significant for insulin- dependent diabetes mellitus, hypertension, hyperlipidemia, CAD status post stent placement and peritoneal mesothelioma presents to the emergency department with a three-day history of fever, cough productive of sputum and abdominal pain. The patient's abdominal pain has been chronic and she is in the process of being referred to the inside sales supervisor for further workup. WBCs 15.6. Lactic acid 2.1. Chest x-ray showed mild patchy left lung base consolidation. Patient also noted to have an elevated troponin of 0.13, has history of troponin elevation. Denies chest pain. EKG without ST segment elevations or depressions. CBC/BMP: 07/10/17 0615 07/10/17 0615 Significant Findings Laboratory Tests Test 07/09/17 18:01 07/09/17 18:02 07/09/17 19:30 07/09/17 21:31 Blood Urea Nitrogen 28 MG/DL (7-18) Creatinine 1.37 MG/DL (0.50-1.00) Random Glucose 203 MG/DL (74-106) Phosphorus Level 1.4 MG/DL (2.5-4.9) Estimat Glomerular Filtration Rate 38 ML/MIN (>89) Troponin I 0.13 NG/ML (0.02-0.05) Lipase 68 U/L (73-393) White Blood Count 15.6 TH/MM3 (4.0-11.0) Red Blood Count 3.69 MIL/MM3 (4.00-5.30) Neutrophils (%) (Auto) 80.0 % (16.0-70.0) Lymphocytes (%) (Auto) 6.5 % (9.0-44.0) Monocytes (%) (Auto) 13.1 % (0.0-8.0) Neutrophils # (Auto) 12.4 TH/MM3 (1.8-7.7) Monocytes # (Auto) 2.0 TH/MM3 (0-0.9) Lactic Acid Level 2.1 mmol/L (0.4-2.0) Urine Turbidity HAZY (CLEAR) Urine Protein 30 mg/dL (NEG-TRACE) Urine Ketones TRACE mg/dL (NEG) Urine Occult Blood SMALL (NEG) Urine Nitrite POS (NEG) Urine Leukocyte Esterase LARGE (NEG) Urine RBC 21 /hpf (0-3) Urine WBC 106 /hpf (0-5) Activated Partial Thromboplast Time 21.2 SEC (24.3-30.1) Test 07/10/17 00:06 07/10/17 06:15 Troponin I 0.12 NG/ML (0.02-0.05) 0.12 NG/ML (0.02-0.05) White Blood Count 11.7 TH/MM3 (4.0-11.0) Red Blood Count 3.73 MIL/MM3 (4.00-5.30) Monocytes (%) (Auto) 13.6 % (0.0-8.0) Neutrophils # (Auto) 8.2 TH/MM3 (1.8-7.7) Monocytes # (Auto) 1.6 TH/MM3 (0-0.9) Blood Urea Nitrogen 23 MG/DL (7-18) Creatinine 1.19 MG/DL (0.50-1.00) Chloride Level 109 MEQ/L (98-107) Estimat Glomerular Filtration Rate 44 ML/MIN (>89) Imaging Last Impressions Chest X-Ray 07/09/17 1705 Signed Impressions: Service Date/Time: Sunday, July 09, 2017 17:30 - CONCLUSION: Mild patchy left lung base consolidation. Tacho Ramirez MD Abdomen/Pelvis CT 07/09/17 0000 Signed Impressions: Service Date/Time: Monday, July 10, 2017 11:25 - CONCLUSION: Extensive atherosclerotic vascular calcifications. I do not see an etiology of patient's abdominal pain. Bilateral nonobstructing renal stones Luis A Killian MD FACR PE at Discharge GENERAL: somewhat ill looking but in no apparent distress. CARDIOVASCULAR: Regular rate and regular rhythm without murmurs, gallops, or rubs. RESPIRATORY: diminished air entry in bases. GASTROINTESTINAL: Abdomen soft, non-tender, nondistended. Normal, active bowel sounds MUSCULOSKELETAL: Extremities without clubbing, cyanosis, or edema. NEURO: Alert & Oriented x4 to person, place, time, situation. Moves all ext x4 Hospital Course patient was admitted with pneumonia and UTI. she was started on IV antibiotics. blood cultures negative and urine culture with MRSA.she was also found to have mildly elevated troponin-likely due to sepsis- she remained chest-pain free and declined any further cardiac work-up. overall her condition improved. she will be discharged on po antibiotics with f/u with her PCP. Pt Condition on Discharge: Fair Discharge Disposition: Disch w/ Home Health Serv Discharge Time: > 30 minutes Discharge Instructions DIET: Follow Instructions for: Heart Healthy Diet Activities you can perform: Regular-No Restrictions Follow up Referrals: PCP Follow-up New Medications: Doxycycline Hyclate (Doxycycline Hyclate) 100 Mg Cap 100 MG PO BID for Infection for 5 Days, #10 CAP 0 Refills Continued Medications: Amlodipine (Amlodipine) 5 Mg Tab 5 MG PO DAILY for Blood Pressure Management, #30 TAB [address] (Aspirin Adult Low Strength) 81 Mg Tabdr 81 MG PO DAILY, TAB Atorvastatin (Atorvastatin) 40 Mg Tab 40 MG PO HS for Cholesterol Management, #30 TAB 0 Refills Carvedilol (Coreg) 25 Mg Tab 25 MG PO BID, #60 TAB 0 Refills Doxazosin (Cardura) 4 Mg Tab 4 MG PO HS, #30 TAB 0 Refills Levothyroxine (Levothyroxine) 25 Mcg Tab 25 MCG PO DAILY for Thyroid, #30 TAB 0 Refills Lisinopril (Lisinopril) 40 Mg Tab 40 MG PO DAILY for Blood Pressure Management, #30 TAB 0 Refills Magnesium Oxide (Magnesium Oxide) 500 Mg Tab 500 MG PO DAILY, TAB 0 Refills Metformin (Metformin) 1,000 Mg Tab 1000 MG PO BID for Blood Sugar Management, #60 TAB 0 Refills With meals Pantoprazole (Pantoprazole) 40 Mg Tab 40 MG PO DAILY for Reflux, #30 TAB 0 Refills Sucralfate (Carafate) 1 Gm Tab 1 GM PO BID for Ulcer Prevention, #90 TAB 0 Refills On empty stomach Padmini Montejo MD Jul 11, 2017 13:24
[2017-07-11 16:01] VITALS: BP 138/63; PULSE 58; RESP 20; TEMP 97.8; O2SAT 94
[2017-07-11] MEDS: cefTRIAXone INJ 1,000 MG in SODIUM CHLORIDE 0.9% INJ 100 ML IV SCH (16:37)
[2017-07-11] MEDS: ATORVASTATIN 40 MG TAB PO SCH (19:53)
[2017-07-11] MEDS: DOXAZOSIN MESYLATE 4 MG TAB PO SCH (19:53)
[2017-07-11 19:59] VITALS: BP 146/67; PULSE 62; RESP 20; TEMP 98.9; O2SAT 96
[2017-07-12] VITALS: BP 137/62; PULSE 58; RESP 21; TEMP 98.8; O2SAT 93
[2017-07-12 04:00] VITALS: BP 166/71; PULSE 58; RESP 20; TEMP 98.6; O2SAT 94
[2017-07-12] MEDS: HEPARIN SODIUM - SQ 10,000 UNITS/ML VIAL SQ SCH ×2 (05:06→13:11)
[2017-07-12] MEDS: LEVOTHYROXINE SODIUM 25 MCG TAB PO SCH (05:06)
[2017-07-12 08:00] VITALS: BP 168/73; PULSE 63; RESP 20; TEMP 97.7; O2SAT 97
[2017-07-12] MEDS: INSULIN ASPART SUPPLEMENTAL SCALE SQ SCH ×2 (08:00→12:00)
[2017-07-12] MEDS: SODIUM CHLORIDE 0.9% FLUSH 10 ML FLUSH IV FLUSH SCH (09:00)
--- NOTE | 2017-07-12 09:16 | HHI.PR ---
Subjective Remarks in no distress. sob is better. has occasional cough. no fever. wants to go home. Objective Vitals Vital Signs Date Time Temp Pulse Resp B/P (MAP) Pulse Ox O2 Delivery O2 Flow Rate FiO2 07/12/17 04:00 98.6 58 20 166/71 (102) 94 07/12/17 03:53 Room Air 07/12/17 00:00 Room Air 07/12/17 00:00 98.8 58 21 137/62 (87) 93 07/11/17 20:00 Room Air 07/11/17 19:59 98.9 62 20 146/67 (93) 96 07/11/17 16:01 97.8 58 20 138/63 (88) 94 07/11/17 13:02 99.2 56 21 131/61 (84) 94 I/O 07/11/17 07/11/17 07/11/17 07/12/17 07/12/17 07/12/17 07:00 15:00 23:00 07:00 15:00 23:00 Intake Total 1262.5 ml 1579 ml 240 ml Balance 1262.5 ml 1579 ml 240 ml Intake Oral 480 ml 240 ml IV Total 1262.5 ml 1099 ml # Voids 5 3 # Bowel Movements 0 0 Result Diagram: 07/10/17 0615 07/10/17 0615 Imaging Last Impressions Chest X-Ray 07/09/17 1705 Signed Impressions: Service Date/Time: Sunday, July 09, 2017 17:30 - CONCLUSION: Mild patchy left lung base consolidation. Tacho Ramirez MD Abdomen/Pelvis CT 07/09/17 0000 Signed Impressions: Service Date/Time: Monday, July 10, 2017 11:25 - CONCLUSION: Extensive atherosclerotic vascular calcifications. I do not see an etiology of patient's abdominal pain. Bilateral nonobstructing renal stones Luis A Killian MD FACR Objective Remarks GENERAL: somewhat ill looking but in no apparent distress. CARDIOVASCULAR: Regular rate and regular rhythm without murmurs, gallops, or rubs. RESPIRATORY: diminished air entry in bases. GASTROINTESTINAL: Abdomen soft, non-tender, nondistended. Normal, active bowel sounds MUSCULOSKELETAL: Extremities without clubbing, cyanosis, or edema. NEURO: Alert & Oriented x4 to person, place, time, situation. Moves all ext x4 Procedures none Medications and IVs Inpatient Medications Acetaminophen (Tylenol) 650 mg ONCE ONCE PO Last administered on 07/09/17 19 :59; Start 07/09/17 at 19:15; Stop 07/09/17 at 19:17; Status DC Albuterol/ Ipratropium (Duoneb Neb) 1 ampule Q4HR NEB PRN INH SHORTNESS OF BREATH; Start 07/09/17 at 20:45 Amlodipine Besylate (Norvasc) 5 mg DAILY PO Last administered on 07/11/17 08: 06; Start 07/10/17 at 09:00 Aspirin (Ecotrin Ec) 81 mg DAILY PO Last administered on 07/11/17 08:06; Start 07/10/17 at 09:00 Atorvastatin Calcium (Lipitor) 40 mg HS PO Last administered on 07/11/17 19: 53; Start 07/09/17 at 21:00 Azithromycin (Zithromax) 500 mg DAILY PO Last administered on 07/11/17 08:06 ; Start 07/10/17 at 17:00 Azithromycin 500 mg/Sodium Chloride 250 ml @ 250 mls/hr ONCE ONCE IV Last administered on 07/09/17 19:57; Start 07/09/17 at 19:00; Stop 07/09/17 at 19 :59; Status DC Carvedilol (Coreg) 25 mg BID PO Last administered on 07/11/17 19:52; Start 07/09/17 at 21:00 Ceftriaxone Sodium 1000 mg/ Sodium Chloride 100 ml @ 200 mls/hr Q24H IV Last administered on 07/11/17 16:37; Start 07/10/17 at 17:00 Dextrose (D50w (Vial) Inj) 50 ml UNSCH PRN IV PUSH HYPOGLYCEMIA-SEE COMMENTS; Start 07/09/17 at 21:00 Diatrizoate Meglum/ Diatrizoate Sod ( Gastroview Liq) 18 ml ONCE ONCE PO Last administered on 07/10/17 08:25; Start 07/10/17 at 07:02; Stop 07/10/17 at 07:52; Status DC Doxazosin Mesylate (Cardura) 4 mg HS PO Last administered on 07/11/17 19:53; Start 07/09/17 at 21:00 Glucagon (Glucagon Inj) 1 mg UNSCH PRN OTHER HYPOGLYCEMIA-SEE COMMENTS; Start 07/09/17 at 21:00 Heparin Sodium (Porcine) (Heparin Inj) 5,000 units Q8HR SQ Last administered on 07/12/17 05:06; Start 07/09/17 at 22:00 Influenza Virus Vaccine (Flu (Quadrivalent) Vaccine Inj) 0.5 ml ONCE ONCE IM Last administered on 07/10/17 09:24; Start 07/10/17 at 09:00; Stop 07/10/17 at 09:01; Status DC Insulin Aspart (NovoLOG SUPPLEMENTAL SCALE) 1 ACHS SLIDING SCALE SQ Last administered on 07/11/17 20:41; Start 07/09/17 at 21:00 Levothyroxine Sodium (Synthroid) 25 mcg DAILY@0600 PO Last administered on 05:06; Start 07/10/17 at 06:00 Lisinopril (Prinivil) 40 mg DAILY PO Last administered on 07/11/17 08:06; Start 07/10/17 at 09:00 Magnesium Oxide (Mag-Ox) 400 mg DAILY PO Last administered on 07/11/17 08:05 ; Start 07/10/17 at 09:00 Miscellaneous Information SPECIFIC LAB TO BE DIDIER... ONCE ONCE .XX ; Start at 09:45; Stop 07/14/17 at 09:46 Morphine Sulfate (Morphine Inj) 2 mg Q4H PRN IV PUSH pain 6-10 Last administered on 07/11/17 19:52; Start 07/09/17 at 21:00 Pantoprazole Sodium (Protonix) 40 mg DAILY PO Last administered on 07/11/17 08:06; Start 07/10/17 at 09:00 Pharmacy Profile Note 0 ml @ 0 mls/hr UNSCH OTHER ; Start 07/11/17 at 09:30 Sodium Chloride (NS Flush) 2 ml BID IV FLUSH Last administered on 07/11/17 19 :53; Start 07/09/17 at 21:00 Vancomycin HCl 1000 mg/Sodium Chloride 250 ml @ 250 mls/hr ONCE ONCE IV ; Start 07/11/17 at 10:00; Stop 07/11/17 at 10:00; Status DC Vancomycin HCl 1250 mg/Sodium Chloride 262.5 ml @ 262.5 mls/ hr Q24H IV Last administered on 07/11/17t 10:59; Start 07/11/17 at 10:00 A/P Problem List: (1) Pneumonia ICD Code: J18.9 - Pneumonia, unspecified organism Status: Acute Assessment and Plan A/P 1. Community-acquired pneumonia/Sepsis- improving. Leukocytosis, elevated lactic acid, and chest x-ray with left lung base consolidation continue Rocephin/azithromycin- will switch to po antibiotic upon discharge. blood cultures negative so far. 2. UTI UC with MRSA started on Vancomycin; will switch to po antibiotic upon discharge. 3. Elevated troponin- likely due to sepsis Patient denies chest pain, EKG without ST segment elevations or depressions. Patient's troponin 0.13- trend stable. of note, this was d/w the patient and she declined any further cardiac work-up. 4. Abdominal pain better. continue pain control. 5. Peritoneal mesothelioma Currently in remission Seen by Dr. Becker on 07/08/17 6. Diabetes mellitus Once medications reconciled, will start patient's home dose Levemir SSI Monitor blood glucose 7. CKD Creatinine 1.37, baseline Monitor renal function Avoid nephrotoxic agents 8. Hypertension/hyperlipidemia/CAD/hypothyroidism/GERD Continue home medications FEN Heart healthy diet Electrolyte: Monitor and replete when necessary DVT prophylaxis with subq Heparin consulted PT. Discharge Planning dc home today. see med list. f/u; pcp. d/w the patient. case management consulted for [facility]. Padmini Montejo MD Jul 12, 2017 09:16
[2017-07-12 09:30] VITALS: O2SAT 98
[2017-07-12] MEDS: amLODIPine BESYLATE 5 MG TAB PO SCH (10:25)
[2017-07-12] MEDS: LISINOPRIL 20 MG TAB PO SCH (10:26)
[2017-07-12] MEDS: MAGNESIUM OXIDE 400 MG TAB PO SCH (10:26)
[2017-07-12] MEDS: AZITHROMYCIN 250 MG TAB PO SCH (10:26)
[2017-07-12] MEDS: CARVEDILOL 12.5 MG TAB PO SCH (10:26)
[2017-07-12] MEDS: ASPIRIN EC 81 MG TABEC PO SCH (10:26)
[2017-07-12] MEDS: PANTOPRAZOLE SOD 40 MG DELAYED RELEASE TAB PO SCH (10:26)
[2017-07-12] MEDS: VANCOMYCIN INJ 1,250 MG in SODIUM CHLOR 0.9% 250 ML INJ 250 ML IV SCH (10:37)
[2017-07-12 12:00] VITALS: BP 159/70; PULSE 65; RESP 20; TEMP 98; O2SAT 96
[2017-07-14] MEDS ORDERED: PHARMACY ORDERED LAB ONE (09:45)
== END 2017-07-12 16:51 | disposition home health service (06) | DRG 871 ==
LOC: NEPE 16:47 → NEDA 19:17 → N04A 20:34
PROVIDERS: ADMIT Internal Medicine; ATTEND Internal Medicine
DX: A41.9 Sepsis, unspecified organism (principal); J18.9 Pneumonia, unspecified organism; N39.0 Urinary tract infection, site not specified; B95.62 Methicillin resistant Staphylococcus aureus infection as the cause of diseases classified elsewhere; E11.22 Type 2 diabetes mellitus with diabetic chronic kidney disease; Z79.84 Long term (current) use of oral hypoglycemic drugs; I12.9 Hypertensive chronic kidney disease with stage 1 through stage 4 chronic kidney disease, or unspecified chronic kidney disease; N18.9 Chronic kidney disease, unspecified; I25.10 Atherosclerotic heart disease of native coronary artery without angina pectoris; Z95.5 Presence of coronary angioplasty implant and graft; Z85.72 Personal history of non-Hodgkin lymphomas; E78.5 Hyperlipidemia, unspecified; R74.8 Abnormal levels of other serum enzymes; K21.9 Gastro-esophageal reflux disease without esophagitis; E03.9 Hypothyroidism, unspecified; H91.90 Unspecified hearing loss, unspecified ear; I25.2 Old myocardial infarction; Z79.82 Long term (current) use of aspirin; Z87.891 Personal history of nicotine dependence; Z96.651 Presence of right artificial knee joint; Z23 Encounter for immunization
CPT/HCPCS: 71010; 74176; 80048; 80053; 81001; 82550; 82948; 83605; 83690; 83735; 84100; 84484; 85025; 85610; 85730; 86403; 87040; 87086; 87147; 87186; 87804; 90686; 93005; 96360; 99212; 99214; G0463; J0456; J0696; J1644; J1815; J2270; J2405; J3370; J7030; J7050; Q2038; Q9963